=== PATIENT | female | born 1955 | race Caucasian/White ===

== ENCOUNTER 2018-12-03 06:27 | Day surgery (SDC) | payer BC ==
[~2018-12-03] VITALS: Ht 177.8 cm; Wt 91.4 kg
[~2018-12-03 06:27] MED LIST: 00186-0372-20; BONIVA150 MG; CYANOCOBAL1000 MCG/1 IM; MOBIC 7.5MG7.5 MG; MOBIC15 MG PO; RT SPIRIVA18 MCG IH; SYNTHROID0.05 MG/TA PO
[2018-12-03 06:51] VITALS: BP 119/89; PULSE 75; TEMP 97.9
[2018-12-03 07:55] VITALS: BP 101/75; PULSE 76
--- NOTE | 2018-12-03 07:55 | NUR ---
Returns to [facility] and transfers from cart to recliner with one person assist. Denies difficulty swallowing or nausea. Temp 97.7. IV fluids infusing. Friend in room and call light in reach.
[2018-12-03 08:10] VITALS: BP 105/72; PULSE 73
--- NOTE | 2018-12-03 08:10 | NUR ---
Sipping on diet [employer]eps[employer]. Awake and talking with friend.
--- NOTE | 2018-12-03 08:15 | NUR ---
IV discontinued and given dismissal instructions. Patient able to dress self.
--- NOTE | 2018-12-03 08:20 | NUR ---
Dismissal instructions signed. Provided copy of report. Reinforced need for soft diet for 24 hours and verbalizes understanding of this.
--- NOTE | 2018-12-03 08:22 | NUR ---
Patient dismissed to home diven by friend per private vehicle and taken to the front door by wheelchair and assisted into car with instructions in hand.
== END 2018-12-03 08:22 | disposition home or self-care (01) ==
LOC: SDCO 06:27
DX: K22.2 Esophageal obstruction (principal); J44.9 Chronic obstructive pulmonary disease, unspecified; M19.042 Primary osteoarthritis, left hand; M19.041 Primary osteoarthritis, right hand; Z87.891 Personal history of nicotine dependence; E03.9 Hypothyroidism, unspecified; Z85.828 Personal history of other malignant neoplasm of skin; E78.00 Pure hypercholesterolemia, unspecified; M81.0 Age-related osteoporosis without current pathological fracture; K21.9 Gastro-esophageal reflux disease without esophagitis; Z98.51 Tubal ligation status; Z98.890 Other specified postprocedural states; Z80.0 Family history of malignant neoplasm of digestive organs; Z88.5 Allergy status to narcotic agent
CPT/HCPCS: C1726; J2704; J7120